=== PATIENT | male | born 1990 ===

== ENCOUNTER → 2021-07-01 17:20 | Outpatient (CLI) | payer OTHER, SELFPAY ==
[2021-07-01 17:59] LABS: COVID19 -Nasal RAPID POSITIVE (Negative)
== END ==
PROVIDERS: Referring Provider Physician Assistant; Visit Provider Physician Assistant
DX: Z20.822 Contact with and (suspected) exposure to COVID-19 (principal); R05.9 Cough, unspecified
CPT/HCPCS: 87635